=== PATIENT | male | born 1945 ===

== ENCOUNTER 2019-12-01 17:25 | IRF | payer MEDICARE, SELFPAY ==
[2019-12-01 17:25] VITALS: BP 104/71; PULSE 85; RESP 18; TEMP 36.1; O2SAT 100; BMI 32.5
--- NOTE | 2019-12-01 18:11 | PC.NURSE ---
This patient, Rakan Rasheed, was admitted to [facility] Room 219-02. Patient/family oriented to hospital policies and general routines including ID bracelet, bed and alarms, visiting hours, pain management, procedures, bathroom and other care routines, personal items, smoking policy, room service/diet, and visiting hours. Valuables list has been completed. Information on how to activate the Rapid Response Team has been discussed. Patient/Family are encouraged to report perceived risks to care and to ask questions if they do not understand what they are told or what they should do.
[2019-12-01 21:11] VITALS: PULSE 85
[2019-12-01] MEDS: BUMETANIDE 1 MG TABLET 2 MG PO (21:11)
[2019-12-01] MEDS: carvediloL 12.5 MG TABLET PO (21:11)
[2019-12-01 21:12] VITALS: PULSE 85
[2019-12-01] MEDS: SACUBITRIL/VALSARTAN 24-26 MG TABLET 1 TAB PO (21:12)
[2019-12-01] MEDS: MEXILETINE HCL 150 MG CAPSULE PO (21:12)
[2019-12-01] MEDS: MONTELUKAST SODIUM 10 MG TABLET PO (21:12)
[2019-12-01] MEDS: ROSUVASTATIN 10 MG TABLET PO (21:12)
[2019-12-01 21:56] VITALS: BP 102/70; PULSE 90; RESP 18; TEMP 35; O2SAT 98
[2019-12-01 22:41] VITALS: PULSE 88; O2SAT 94
[2019-12-02 05:30] LABS: Basophils Absolute Auto 0.1 K/mm3 (0.0-0.1); Basophils Percent Auto 1.2 % (0.2-1.2); Eosinophils Absolute Auto 0.2 K/mm3 (0-0.3); Eosinophils Percent Auto 3.8 % (0-4.4); Hematocrit 45.6 % (42.0-52.0); Hemoglobin 15.1 g/dL (14.0-18.0); Immature Granulocyte Absolute 0.02 K/mm3 (0.00-0.031); Immature Granulocyte Percent A 0.5 % (0-0.5); Lymphocytes Absolute Auto 0.59 K/mm3 (0.9-3.2); Lymphocytes Percent Auto 13.9 % (18.3-44.2); Mean Corpuscular HGB Conc 33.1 g/dl (32-36); Mean Corpuscular Volume 99.6 fl (80-100); Mean Platelet Volume 9.8 fl (7.4-10.4); Monocytes Absolute Auto 0.5 K/mm3 (0.1-0.6); Neutrophils Absolute Auto 2.9 K/mm3 (1.3-6.7); Neutrophils Percent Auto 68.6 % (45.5-73.1); Platelet Count Result 142 k/mm3 (150-375); Red Blood Count 4.58 M/mm3 (4.6-6.20); Red Cell Distribution Width 15.9 % (11.5-14.5); White Blood Count 4.3 K/mm3 (4.5-10.0)
[2019-12-02 05:35] VITALS: BP 100/67; PULSE 70; RESP 18; TEMP 35.6; O2SAT 98
[2019-12-02 05:41] LABS: Potassium 3.8 mmol/L (3.4-5.0)
[2019-12-02] MEDS: LEVOTHYROXINE SODIUM 75 MCG TABLET PO (05:43)
[2019-12-02 05:50] LABS: Anion Gap 5 mmol/L (8-16); Blood Urea Nitrogen 20 mg/dL (9-20); Calcium 8.1 mg/dL (8.4-10.2); Carbon Dioxide 34 mmol/L (22-30); Chloride 94 mmol/L (98-107); Estimated CRCL calculation 48 ml/min; Estimated Glomerular Filt Rate 50; Glucose 88 mg/dL (75-110); Sodium 133 mmol/L (137-145)
[2019-12-02 08:27] VITALS: PULSE 78
[2019-12-02] MEDS: BUMETANIDE 1 MG TABLET 2 MG PO ×2 (08:27→18:28)
[2019-12-02] MEDS: carvediloL 12.5 MG TABLET PO (08:27)
[2019-12-02] MEDS: ASPIRIN 81 MG ENTERIC TABLET PO (08:27)
[2019-12-02 08:34] VITALS: PULSE 78
[2019-12-02] MEDS: CYANOCOBALAMIN 250 MCG TABLET PO (08:34)
[2019-12-02] MEDS: CITALOPRAM HYDROBROMIDE 20 MG TABLET PO (08:34)
[2019-12-02] MEDS: CHOLECALCIFEROL 1,000 UNITS TABLET 1000 UNITS PO (08:34)
[2019-12-02] MEDS: SACUBITRIL/VALSARTAN 24-26 MG TABLET 1 TAB PO ×2 (08:34→21:29)
[2019-12-02] MEDS: MEXILETINE HCL 150 MG CAPSULE PO (08:34)
[2019-12-02] MEDS: SPIRONOLACTONE 25 MG TABLET PO (08:34)
--- NOTE | 2019-12-02 10:30 | WPDREHABHP ---
H&P: HPI History of Present Illness Date/Time: 12/02/19 13:32 Chief complaint: ventricular tachycardia Narrative: Rakan Rasheed is a 73 year old maleHISTORY OF PRESENT ILLNESS: The patient's primary rehab impairment category is 14 - cardiac The etiologic diagnosis is ventricular tachycardia I saw this patient [id number] on December 02, 2019 at 10:30 a.m. The patient is a 73-year-old right-handed white male with a past medical history of hypertension, congestive heart failure, hyperlipidemia, coronary artery disease, non ST elevation [place], and ischemic cardiomyopathy who presented to [facility] on November 24, 2019 as a transfer from [facility] for possible ventricular tachycardia ablation. The patient had been having increasing episodes of V-tach with appropriated ATP and got shocked by his device about 2 weeks ago. He was admitted to [facility] where he was started on lidocaine drip and then transverse transition to mexiletine he was then discharged but his heart rate was 135 on pulse oximetry so he went to the ER where he was found to be in V-tach. He was shocked twice and he reverted back to his AV paced rhythm. He has also been having worsening bilateral pedal swelling which prompted an increase in diuretic. He underwent a left heart catheterization to evaluate for ischemia and showed a nonobstructive proximal lad lesion, ventriculogram showed an ejection fraction of 10 to 15%. Echocardiogram on November 25, 2019 showed an ejection fraction of 25% with moderate to severe mitral and tricuspid regurgitation and gait 3 diastolic dysfunction. He underwent a successful epicardial ablation on November 25. That was complicated by a large pericardial effusion without tamponade. Femoral sheaths and drain were removed by Cardiology in November 27, 2019. He was monitor in the ICU and recovered well. He was transferred out of the ICU on November 28, 2019. Hospitalization has been significant for ventricular tachycardia, acute on chronic combined systolic and diastolic congestive heart failure, acute on chronic kidney disease, volume overload, and acute post procedural pain. There have been many medication adjustments that will need to be monitored. He underwent repeat echocardiogram in November 30, 2019 with no new interventions necessary. The ejection fraction remained 25%. The patient was discharged to rehab and subcutaneous heparin for DVT prophylaxis. However I do not see heparin on his discharge medication we will have to see how far he is able to walk then will decide whether not to restart the heparin. The patient has not traveled outside the [place] or had contact with someone who is ill that has traveled outside the [place] in the past 21 days. The patient has not traveled to an area of the [place] that is experiencing no transmission of the Coronavirus and has not had close personal contact with anyone that has. Patient does not have a fever. The patient is not experiencing lower respiratory illness symptoms. Therapy was initiated at the acute care facility and the patient transferred to us from [facility] on December 01, 2019 FALLS OR SURGERIES: The patient has had major surgeries in the 100 days prior to admission. They had falls in the past year. They had falls with injury in the past year. PAST MEDICAL HISTORY: atrial fibrillation, hypertension, benign prostatic hypertrophy, chronic kidney disease, coronary artery disease, non ST elevation myocardial infarction, depression, thrombocytopenia, monoclonal B-cell lymphocytosis, hypertension, hyperlipidemia, ventricular tachycardia, ischemic cardiomyopathy, obstructive sleep apnea on home CPAP, obesity PAST SURGICAL HISTORY: cardiac defibrillator placement, ablation, biventricular defibrillator generator, right AV pacing lead, are we defibrillator lead, LV difficult lead implantation, left knee surgery, this was due to meniscal tear SOCIAL HIST
[2019-12-02 12:32] VITALS: BMI 32.5
[2019-12-02 14:00] VITALS: BP 82/62; PULSE 70; RESP 16; TEMP 35.8; O2SAT 100
[2019-12-02] MEDS: ROSUVASTATIN 10 MG TABLET PO (21:29)
[2019-12-02] MEDS: MONTELUKAST SODIUM 10 MG TABLET PO (21:29)
[2019-12-02 21:30] VITALS: PULSE 70
[2019-12-02 22:00] VITALS: BP 90/60; PULSE 70; RESP 16; TEMP 36.5; O2SAT 97
--- NOTE | 2019-12-02 22:00 | PC.NURSE ---
pt refused bp meds. aware
[2019-12-03] VITALS (7 sets, daily range): BP systolic 79–104; BP diastolic 53–70; PULSE 69–72; RESP 18–20; TEMP 35.9–36.6; O2SAT 98–100
[2019-12-03] MEDS: LEVOTHYROXINE SODIUM 75 MCG TABLET PO (05:41)
[2019-12-03] MEDS: ASPIRIN 81 MG ENTERIC TABLET PO (08:36)
[2019-12-03] MEDS: carvediloL 12.5 MG TABLET PO ×2 (08:36→20:40)
[2019-12-03] MEDS: BUMETANIDE 1 MG TABLET 2 MG PO ×2 (08:36→17:35)
[2019-12-03] MEDS: CYANOCOBALAMIN 250 MCG TABLET PO (08:37)
[2019-12-03] MEDS: SACUBITRIL/VALSARTAN 24-26 MG TABLET 1 TAB PO (08:37)
[2019-12-03] MEDS: CITALOPRAM HYDROBROMIDE 20 MG TABLET PO (08:37)
[2019-12-03] MEDS: CHOLECALCIFEROL 1,000 UNITS TABLET 1000 UNITS PO (08:37)
[2019-12-03] MEDS: SPIRONOLACTONE 25 MG TABLET PO (08:37)
[2019-12-03] MEDS: MEXILETINE HCL 150 MG CAPSULE PO ×2 (08:38→20:40)
--- NOTE | 2019-12-03 16:14 | RPD ---
INDIVIDUALIZED PLAN OF CARE FOR Rakan Rasheed Brief Synthesis of Pre-Admission Screen, Post-Admission Evaluation and Therapy Evaluations: The patient presents to rehab with ventricular tachycardia. Comorbidities include status post epicardial ablation, pericardial effusion, drain placement and removal, acute post-procedural pain, acute kidney injury on chronic kidney disease, acute on chronic congestive heart failure, volume overload, edema, hyperlipidemia, hypertension, and BPH. The patient?s needs will be best met in an intensive program vs. at a lower level of care. The patient requires physician services for medical oversight, management of post-procedure complications in setting of present comorbidities, and pain management. The patient requires nursing services for anticoagulation therapy, DVT prophylactics, infection protection, medication management and education, pressure relief, and wound care. Deficits include:ADLs, Balance, Endurance, Family Training/Education, Mobility, Pain Management, ROM, Safety, Strength, and Transfers Teaseler/Case Management for: Discharge Planning and Patient/Family Counseling Physical Therapy: 5 days per week for 75 minutes. Treatments may include: Therapeutic Exercise, Gait Training, Neuromuscular Re-education, Transfer Training, Community Reintegration, Bed Mobility, Patient/Family Education, Wheelchair Mobility Group Therapy/Concurrent Therapy Rationales: -Improve attention span during functional activities in a distracted environment. -Enhance problem solving and/or adequate judgment skills during functional activities in a distracted environment. -Promote increased safety awareness in a distracted environment to reduce fall risk with functional tasks, transfers, and ambulation to allow a more safe, self-sufficient return to the home environment. -Improve dynamic balance skills to promote safety and independence with functional activities in a distracted environment for maximum gain. Occupational Therapy: 5 days per week for 75 minutes. Treatments may include: Therapeutic Exercise, Therapeutic Activity, Cognitive Training, Self-Care Transfer Training, Community Reintegration, Home Management, Patient/Family Education, Wheelchair Mobility Training, Energy Conservation Training Group Therapy/Concurrent Therapy Rationales: -Allow therapist to observe and teach generalization and carry-over of skills learned in individual therapy. -Enhance problem solving and sequencing skills during therapeutic activities in a distracted environment. -Promote increased safety awareness in a realistic setting to reduce fall risk with functional tasks due to visual and verbal distractions. -Increase functional level with ADLs, ADL transfers and use of adaptive equipment through therapeutic activities with others while promoting safety to allow a more safe, self-sufficient return home. Speech Therapy: 5 days per week for 30 minutes. Treatments may include: Dysphasia Therapy, Speech/Language/Communication Therapy, Cognitive Training, Patient/Family Education Group Therapy/Concurrent Therapy - Rationale: -Allow therapist to observe and teach generalization and carry-over of skills learned in individual therapy. -Improve comprehension skills with complex or abstract ideas through discussion in a realistic setting. -Enhance problem solving skills with complex issues during activities in a distracted environment. -Promote increased memory skills and concentration in a distracted environment for a safe transition home. -Improve attention and focus with language/communication skills in a realistic and supportive therapeutic setting. -Allow for practice of expression of basic needs and ideas through functional activities with others. Medical Prognosis: Good Anticipated Length of Stay: 10 days Rehab Goals: Eating Goal: 06-Independent Oral Hygiene Goal: 06-Independent Toileting Hygiene Goal: 06-Independent Shower/Bathe Self Goal: 06-In
--- NOTE | 2019-12-03 19:15 | WPDCN ---
Assessment and Plan Assessment and plan (1) Hypotension: Code(s): I95.9 - Hypotension, unspecified Status: Acute Assessment and Plan: Patient has had trouble with hypotension at [place] and here with diuresis. He is asymptomatic however , and his renal function is normal. Okay for blood pressure to be in the mid 90s. He is on several cardiac medications for CHF; will need to reduce cardiac meds for now, and later, once if it sufficiently diuresed, titrate back upwards (2) Chronic combined systolic and diastolic CHF (congestive heart failure): Code(s): I50.42 - Chronic combined systolic (congestive) and diastolic (congestive) heart failure Status: Acute Assessment and Plan: Patient has been diuresed and has lost a lot of weight recently but still is volume overloaded with ascites, edema of the abdominal wall, and a left pleural effusion. Will try to continue diuretics but will need to reduce his other cardiac medications in order to diurese. Reduce Entresto 24/26 mg to half a tablet b.i.d.. Hold carvedilol if SBP < 90 mmHg. (3) Nonischemic cardiomyopathy: Code(s): I42.8 - Other cardiomyopathies Status: Acute Assessment and Plan: Nonischemic cardiomyopathy, EF 20-25%. (4) History of radiofrequency ablation procedure for cardiac arrhythmia: Code(s): Z98.890 - Other specified postprocedural states Status: Acute Assessment and Plan: Recent successful V-tach ablation at [facility] complicated by hemorrhagic pericardial effusion which has been drained. No evidence of significant recurrence. Additional Plan Thank you for this consult. Will follow and assist in any way we can. HPI Data of Consult Date/Time: 12/03/19 19:15 Requesting Physician: Markel Walls MD Primary Care Provider: Mikael Freitas MD Consult Narrative Narrative: Date of service: 12/03/2019 Rakan Rasheed is a 73 year old male With a very complex cardiac history whom I was asked to see at the request of Dr. Walls for my advice and opinion regarding his low blood pressure in consultation. The patient's neurology epilepsy physician is Dr. Short and his primary care doctors Dr. Freitas. The patient has a nonischemic cardiomyopathy, EF 25% ( echo 11/2019), status post BiV-ICD 2017. He has been having problems with recurrent VT and recurrent defibrillations. he was admitted to [facility] for sustained ventricular tachycardia in November. Left heart catheterization Showed nonobstructive disease. He was sent to [facility] aneendo/epi V-tach ablation on 11/26/2019 complicated by large pericardial effusion without tamponade. He had a pericardial drain placed. He is very volume overloaded. He transiently required Levophed. He had problems with hypotension. He was not able the tolerate all of his previous cardiac medications. his hydralazine and nitrates were eventually discontinued. His Entresto has been reduced. He was diuresed. ( The patient tells me he lost 60 lb in 3 weeks ...?) The patient was transferred to rehab on 12/01/2019. He says he really feels good and denies any MELLO with physical therapy. No PND , orthopnea, or lightheadedness. His had very little lower extremity edema but most of his fluid retention has been in his abdomen. His systolic blood pressure was as low as 79/53 mmHg but usually the systolic pressure is 90-105 mmHg. Cardiac testin11/16/2019 cardiac catheterization: 40% stenosis of the proximal Left anterior descending, EF 10-15%, 2+ mitral regurgitation 11/25/2019 echo: Marked LV enlargement, RV enlargement, EF 25%, grade 3 diastolic dysfunction,moderate to severe MR, severe TR, RVSP 45 mmHg, large pleural effusion 11/30/2019 Limited Echo: large left pleural effusion, small residual pericardial e
[2019-12-03] MEDS: ROSUVASTATIN 10 MG TABLET PO (20:39)
[2019-12-03] MEDS: MONTELUKAST SODIUM 10 MG TABLET PO (20:39)
[2019-12-03] MEDS: SACUBITRIL/VALSARTAN 12-13 MG TABLET 1 TAB PO (21:54)
[2019-12-04] VITALS (8 sets, daily range): BP systolic 82–86; BP diastolic 54–59; PULSE 66–81; RESP 18–20; TEMP 36.1–36.2; O2SAT 94–100
[2019-12-04] MEDS: LEVOTHYROXINE SODIUM 75 MCG TABLET PO (05:36)
[2019-12-04] MEDS: BUMETANIDE 1 MG TABLET 2 MG PO ×2 (08:48→18:19)
[2019-12-04] MEDS: ASPIRIN 81 MG ENTERIC TABLET PO (08:48)
[2019-12-04] MEDS: CHOLECALCIFEROL 1,000 UNITS TABLET 1000 UNITS PO (08:50)
[2019-12-04] MEDS: MEXILETINE HCL 150 MG CAPSULE PO ×2 (08:50→20:42)
[2019-12-04] MEDS: CYANOCOBALAMIN 250 MCG TABLET PO (08:50)
[2019-12-04] MEDS: CITALOPRAM HYDROBROMIDE 20 MG TABLET PO (08:50)
[2019-12-04] MEDS: SACUBITRIL/VALSARTAN 12-13 MG TABLET 1 TAB PO ×2 (08:51→20:42)
[2019-12-04] MEDS: SPIRONOLACTONE 25 MG TABLET PO (08:51)
--- NOTE | 2019-12-04 12:01 | WPDNEURORHBP ---
Subjective Date/time seen: 12/04/19 12:01 Interval history: this 73-year-old gentleman is here with a complicated cardiac history the primary rehab category is the ventricular tachycardia followed by procedures as have been documented by myself and also the network firewall engineer consulted her notes were reviewed the patient is really asymptomatic even with low blood pressure running below 100 systolic engage in therapy denies any headache nausea vomiting chest pain shortness of breath fever chills sore throat his blood pressure medication have been reduced and he continues with the diuresis Review of Systems Review of Systems: All systems reviewed & are unremarkable except as noted in HPI and below Functional Status Ambulation Ability Ability to Ambulate 10 Feet: Contact Guard Ability to Ambulate 50 Feet With 2 Turns: Contact Guard Ability to Ambulate 150 Feet: Contact Guard Ambulation Assistive Devices: Walker, Wheeled Transfers Ability Ability to Transfer In/Out of Chair: Contact Guard Exam Const: General: comfortable and no acute distress HENMT: General nose exam: Normal nares present Mouth: Yes moist mucous membranes Eyes: General: appearance normal, both eyes and all related structures Neck: Neck: supple and no JVD Resp: Effort & Inspection: normal respiratory effort Auscultation: clear to auscultation bilaterally Cardio: Rate: regular rate Rhythm: regular rhythm Other: paced rhythm GI: GI Palp: Yes Soft to palpation Auscultation: normal bowel sounds Skin: General skin exam: normal color and no rashes or lesions noted Neuro: Other: patient is awake and alert well oriented has generalized decreased strength and decreased endurance but is getting better and he is moving forward Extrem: General: normal to inspection Other: edema of the lower extremities slowly getting better Psych: Mental Status: mental status grossly normal Objective Data Vital Signs Vital Signs: Vital Signs - 24 hr 12/03/19 14:00 12/03/19 20:40 12/03/19 21:57 Temperature 36.2 C L 35.9 C L Pulse Rate 70 70 70 Respiratory Rate 18 20 Blood Pressure 79/53 L 85/59 L Pulse Oximetry 100 99 12/03/19 22:02 12/04/19 05:40 12/04/19 08:49 Temperature 36.1 C L Pulse Rate 72 71 66 Respiratory Rate 20 Blood Pressure 84/59 L Pulse Oximetry 98 99 12/04/19 08:50 Temperature Pulse Rate 66 Respiratory Rate Blood Pressure Pulse Oximetry Intake/Output Intake/Output: Intake & Output 12/01/19 12/02/19 12/03/19 12/04/19 23:59 23:59 23:59 23:59 Intake Total 960 480 Balance 960 480 Meds/Results Medications: Active Medications Generic Name Dose Route Start Last Admin Trade Name Troy PRN Reason Stop Dose Admin Aspirin 81 mg 12/02/19 09:00 12/04/19 08:48 Aspirin Ec PO 81 mg DAILY GENO Administration Bumetanide 2 mg 12/01/19 17:00 12/04/19 08:48 Bumex Po PO 2 mg BID GENO Administration Carvedilol 12.5 mg 12/01/19 21:00 12/04/19 08:49 Coreg PO Not Given Q12HR [facility] Citalopram Hydrobromide 20 mg 12/02/19 09:00 12/04/19 08:50 Celexa PO 20 mg DAILY GENO Administration Cyanocobalamin 250 mcg 12/02/19 09:00 12/04/19 08:50 Vitamin B-12 Tab PO 250 mcg QAM GENO Administration Levothyroxine Sodium 75 mcg 12/02/19 06:30 12/04/19 05:36 Synthroid PO 75 mcg DAILY@0630 GENO Administration Mexiletine HCl 150 mg 12/01/19 21:00 12/04/19 08:50 Mexitil PO 150 mg Q12HR GENO Administration Montelukast Sodium 10 mg 12/01/19 21:00 12/03/19 20:39 Singulair PO 10 mg HS GENO Administration Rosuvastatin Calcium 10 mg 12/01/19 21:00 12/03/19 20:39 Crestor PO 10 mg HS GENO Administration Sacubitril/Valsartan 1 tab 12/03/19 21:00 12/04/19 08:51 Entresto 12 Mg-13 Mg Tablet PO 1 tab Q12HR GENO Administration Spironolactone 25 mg 12/02/19 09:00 12/04/19 08:51 Aldactone PO 25 mg DAILY GENO Administration Vitamin D 1,000
[2019-12-04] MEDS: MONTELUKAST SODIUM 10 MG TABLET PO (20:42)
[2019-12-04] MEDS: ROSUVASTATIN 10 MG TABLET PO (20:42)
[2019-12-05] MEDS: LEVOTHYROXINE SODIUM 75 MCG TABLET PO (05:39)
[2019-12-05 06:00] VITALS: BP 91/62; PULSE 80; RESP 12; TEMP 36.6; O2SAT 99
[2019-12-05] MEDS: ASPIRIN 81 MG ENTERIC TABLET PO (08:45)
[2019-12-05 08:46] VITALS: PULSE 80
[2019-12-05] MEDS: carvediloL 12.5 MG TABLET PO (08:46)
[2019-12-05] MEDS: BUMETANIDE 1 MG TABLET 2 MG PO ×2 (08:46→17:27)
[2019-12-05 08:47] VITALS: PULSE 80
[2019-12-05] MEDS: MEXILETINE HCL 150 MG CAPSULE PO ×2 (08:47→21:03)
[2019-12-05] MEDS: CITALOPRAM HYDROBROMIDE 20 MG TABLET PO (08:47)
[2019-12-05] MEDS: CHOLECALCIFEROL 1,000 UNITS TABLET 1000 UNITS PO (08:47)
[2019-12-05] MEDS: SACUBITRIL/VALSARTAN 12-13 MG TABLET 1 TAB PO ×2 (08:47→21:04)
[2019-12-05] MEDS: CYANOCOBALAMIN 250 MCG TABLET PO (08:47)
[2019-12-05] MEDS: SPIRONOLACTONE 25 MG TABLET PO (08:47)
[2019-12-05 14:00] VITALS: BP 84/60; PULSE 70; RESP 18; TEMP 35.9; O2SAT 96
[2019-12-05] MEDS: ROSUVASTATIN 10 MG TABLET PO (21:03)
[2019-12-05] MEDS: MONTELUKAST SODIUM 10 MG TABLET PO (21:04)
[2019-12-05 21:06] VITALS: PULSE 70
[2019-12-05 21:48] VITALS: BP 85/60; PULSE 70; RESP 18; TEMP 36.3; O2SAT 98
[2019-12-06] VITALS (8 sets, daily range): BP systolic 85–100; BP diastolic 53–76; PULSE 70–82; RESP 18–22; TEMP 35.9–36.3; O2SAT 96–100
[2019-12-06] MEDS: LEVOTHYROXINE SODIUM 75 MCG TABLET PO (06:02)
[2019-12-06] MEDS: CITALOPRAM HYDROBROMIDE 20 MG TABLET PO (09:31)
[2019-12-06] MEDS: CHOLECALCIFEROL 1,000 UNITS TABLET 1000 UNITS PO (09:31)
[2019-12-06] MEDS: ASPIRIN 81 MG ENTERIC TABLET PO (09:31)
[2019-12-06] MEDS: carvediloL 12.5 MG TABLET PO ×2 (09:31→21:43)
[2019-12-06] MEDS: BUMETANIDE 1 MG TABLET 2 MG PO (09:31)
[2019-12-06] MEDS: CYANOCOBALAMIN 250 MCG TABLET PO (09:31)
[2019-12-06] MEDS: SACUBITRIL/VALSARTAN 12-13 MG TABLET 1 TAB PO ×2 (09:32→21:46)
[2019-12-06] MEDS: SPIRONOLACTONE 25 MG TABLET PO (09:32)
[2019-12-06] MEDS: MEXILETINE HCL 150 MG CAPSULE PO ×2 (09:32→21:44)
--- NOTE | 2019-12-06 12:20 | WPDNEURORHBP ---
Subjective Date/time seen: 12/05/[birth year]72 years old has been admitted to the rehab floor with ventricular tachycardia 12:20 Review of Systems Review of Systems: Narrative: all systems reviewed and are unremarkable except as noted in admission history and physical examination Functional Status Ambulation Ability Ability to Ambulate 10 Feet: Independent Ability to Ambulate 50 Feet With 2 Turns: Standby Assistance Ability to Ambulate 150 Feet: Standby Assistance Ambulation Assistive Devices: None Transfers Ability Ability to Transfer In/Out of Chair: Independent Exam Narrative: Exam Narrative: examination reveals him to be awake alert cooperative in no obvious acute distress ear nose throat examination normal with no drainage from the nose eyes are normal with normal cornea normal pupil and normal extraocular movements neck is supple with no cervical bruit no thyromegaly no lymphadenopathy heart regular with no murmur lungs clear to auscultation with no rhonchi or crepitations abdomen is soft with no organomegaly normal bowel sounds with no tenderness skin normal neurological he is awake alert oriented x3 manifest generalized weakness with decreased endurance definitely getting better with no focal neurological signs reflexes are sluggish plantars are downgoing extremities are normal with no signs of DVT mentally he is awake alert with no evidence of delusion depression Objective Data Vital Signs Vital Signs: Vital Signs - 24 hr 12/05/19 14:00 12/05/19 21:06 12/05/19 21:48 Temperature 35.9 C L 36.3 C L Pulse Rate 70 70 70 Respiratory Rate 18 18 Blood Pressure 84/60 L 85/60 L Pulse Oximetry 96 98 12/06/19 06:03 12/06/19 09:31 12/06/19 09:32 Temperature 36.2 C L Pulse Rate 70 70 70 Respiratory Rate 18 Blood Pressure 100/76 Pulse Oximetry 100 Intake/Output Intake/Output: Intake & Output 12/03/19 12/04/19 12/05/19 12/06/19 23:59 23:59 23:59 23:59 Intake Total 480 480 720 240 Balance 480 480 720 240 Meds/Results Medications: Active Medications Generic Name Dose Route Start Last Admin Trade Name Freq PRN Reason Stop Dose Admin Aspirin 81 mg 12/02/19 09:00 12/06/19 09:31 Aspirin Ec PO 81 mg DAILY GENO Administration Bumetanide 2 mg 12/06/19 09:00 12/06/19 09:31 Bumex Po PO 2 mg DAILY GENO Administration Carvedilol 12.5 mg 12/01/19 21:00 12/06/19 09:31 Coreg PO 12.5 mg Q12HR GENO Administration Citalopram Hydrobromide 20 mg 12/02/19 09:00 12/06/19 09:31 Celexa PO 20 mg DAILY GENO Administration Cyanocobalamin 250 mcg 12/02/19 09:00 12/06/19 09:31 Vitamin B-12 Tab PO 250 mcg QAM GENO Administration Levothyroxine Sodium 75 mcg 12/02/19 06:30 12/06/19 06:02 Synthroid PO 75 mcg DAILY@0630 GENO Administration Mexiletine HCl 150 mg 12/01/19 21:00 12/06/19 09:32 Mexitil PO 150 mg Q12HR GENO Administration Montelukast Sodium 10 mg 12/01/19 21:00 12/05/19 21:04 Singulair PO 10 mg HS GENO Administration Rosuvastatin Calcium 10 mg 12/01/19 21:00 12/05/19 21:03 Crestor PO 10 mg HS GENO Administration Sacubitril/Valsartan 1 tab 12/03/19 21:00 12/06/19 09:32 Entresto 12 Mg-13 Mg Tablet PO 1 tab Q12HR GENO Administration Spironolactone 25 mg 12/02/19 09:00 12/06/19 09:32 Aldactone PO 25 mg DAILY GENO Administration Vitamin D 1,000 units 12/02/19 09:00 12/06/19 09:31 Vitamin D PO 1,000 units DAILY GENO Administration Progress Note: A&P Assessment and Plan (1) Hypotension: Code(s): I95.9 - Hypotension, unspecified Status: Acute (2) Atrial fibrillation: Code(s): I48.91 - Unspecified atrial fibrillation Status: Acute (3) Biventricular ICD (implantable cardioverter-defibrillator) in place: Code(s): Z95.810 - Presence of automatic (implantable) cardiac defibrillator Status: Acute (4) History of radiofrequency ablation procedure for ca
[2019-12-06] MEDS: MONTELUKAST SODIUM 10 MG TABLET PO (21:45)
[2019-12-06] MEDS: ROSUVASTATIN 10 MG TABLET PO (21:45)
[2019-12-07] VITALS (11 sets, daily range): BP systolic 73–127; BP diastolic 50–73; PULSE 68–84; RESP 16–20; TEMP 35.7–36.6; O2SAT 93–99
[2019-12-07] MEDS: LEVOTHYROXINE SODIUM 75 MCG TABLET PO (05:25)
[2019-12-07] MEDS: ASPIRIN 81 MG ENTERIC TABLET PO (09:22)
[2019-12-07] MEDS: CHOLECALCIFEROL 1,000 UNITS TABLET 1000 UNITS PO (09:22)
[2019-12-07] MEDS: carvediloL 12.5 MG TABLET PO ×2 (09:22→21:22)
[2019-12-07] MEDS: CYANOCOBALAMIN 250 MCG TABLET PO (09:22)
[2019-12-07] MEDS: SACUBITRIL/VALSARTAN 12-13 MG TABLET 1 TAB PO ×2 (09:22→21:21)
[2019-12-07] MEDS: CITALOPRAM HYDROBROMIDE 20 MG TABLET PO (09:22)
[2019-12-07] MEDS: BUMETANIDE 1 MG TABLET 2 MG PO (09:23)
[2019-12-07] MEDS: MEXILETINE HCL 150 MG CAPSULE PO ×2 (09:23→21:21)
[2019-12-07] MEDS: SPIRONOLACTONE 25 MG TABLET PO (09:23)
--- NOTE | 2019-12-07 12:32 | PM.PNCARD ---
Progress Note: A&P Additional Plan 73-year-old man with: Nonischemic cardiomyopathy here in rehab after complicated VT ablation that was done at [facility]. Procedure apparently was complicated by perforation and a hemorrhagic effusion which had to be drained urgently. He seems to be clinically stable. Blood pressure in the office chart is measured low at 77 systolic. My blood pressure taken myself during the exam is 90/58. This type of blood pressure is expected as per Dr. Smith's noted. He appears to be clinically stable no changes in cardiac regimen today and will follow peripherally until discharge. Manuel Pugh MD [facility] Subjective Date/time seen: date of service:12/07/19 12:32 Interval history: follow-up visit in this 73-year-old man here recovering from a VT ablation and complicated by hemorrhagic pericardial effusion. Patient feels reasonably well today denies any complaints. Hoping to be able to go home later this week. Exam Const: General: comfortable and no acute distress Other: Patient seated in bed enjoying his lunch HENMT: Mouth: Yes moist mucous membranes Eyes: Sclera: sclerae normal Pupils: Equal, round and reactive pupils present Neck: Neck: supple and no JVD Resp: Effort & Inspection: normal respiratory effort Auscultation: clear to auscultation bilaterally Cardio: Rate: regular rate Rhythm: regular rhythm Other: patient has a high-pitched pericardial rub GI: Auscultation: normal bowel sounds Skin: General skin exam: normal color Neuro: Cognition (Neuro): normal cognition Extrem: General: normal to inspection Objective Data Vital Signs Vital Signs: Vital Signs - 24 hr 12/06/19 14:00 12/06/19 21:43 12/06/19 21:44 Temperature 35.9 C L Pulse Rate 71 70 70 Respiratory Rate 22 H Blood Pressure 85/53 L Pulse Oximetry 97 12/06/19 21:50 12/06/19 22:00 12/07/19 02:03 Temperature 36.3 C L Pulse Rate 82 71 70 Respiratory Rate 18 Blood Pressure 96/55 L Pulse Oximetry 96 98 94 12/07/19 06:00 12/07/19 09:22 12/07/19 09:23 Temperature 36.4 C Pulse Rate 70 68 68 Respiratory Rate 16 Blood Pressure 99/62 L Pulse Oximetry 99 12/07/19 11:00 Temperature Pulse Rate Respiratory Rate Blood Pressure 73/50 L Pulse Oximetry Intake/Output Intake/Output: Intake & Output 12/04/19 12/05/19 12/06/19 12/07/19 23:59 23:59 23:59 23:59 Intake Total 480 720 720 240 Balance 480 720 720 240 Meds/Results Medications: Active Medications Generic Name Dose Route Start Last Admin Trade Name Troy PRN Reason Stop Dose Admin Aspirin 81 mg 12/02/19 09:00 12/07/19 09:22 Aspirin Ec PO 81 mg DAILY GENO Administration Bumetanide 2 mg 12/06/19 09:00 12/07/19 09:23 Bumex Po PO 2 mg DAILY GENO Administration Carvedilol 12.5 mg 12/01/19 21:00 12/07/19 09:22 Coreg PO 12.5 mg Q12HR GENO Administration Citalopram Hydrobromide 20 mg 12/02/19 09:00 12/07/19 09:22 Celexa PO 20 mg DAILY GENO Administration Cyanocobalamin 250 mcg 12/02/19 09:00 12/07/19 09:22 Vitamin B-12 Tab PO 250 mcg QAM GENO Administration Levothyroxine Sodium 75 mcg 12/02/19 06:30 12/07/19 05:25 Synthroid PO 75 mcg DAILY@0630 GENO Administration Mexiletine HCl 150 mg 12/01/19 21:00 12/07/19 09:23 Mexitil PO 150 mg Q12HR GENO Administration Montelukast Sodium 10 mg 12/01/19 21:00 12/06/19 21:45 Singulair PO 10 mg HS GENO Administration Rosuvastatin Calcium 10 mg 12/01/19 21:00 12/06/19 21:45 Crestor PO 10 mg HS GENO Administration Sacubitril/Valsartan 1 tab 12/03/19 21:00 12/07/19 09:22 Entresto 12 Mg-13 Mg Tablet PO 1 tab Q12HR GENO Administration Spironolactone 25 mg 12/02/19 09:00 12/07/19 09:23 Aldactone PO 25 mg DAILY GENO Administration Vitamin D 1,000 units 12/02/19 09:00 12/07/19 09:22 Vitamin D PO 1,000 units DAILY GENO Administrat
--- NOTE | 2019-12-07 13:20 | PCPTNOTE ---
Rakan Rasheed was evaluated for a wheeled walker on 12/07/2019 by this physical therapist. The wheeled walker will resolve patient's mobility limitations and will be used for ADL's within the home. The patient can safely use the wheeled walker. ?The wheeled walker will resolve the patient?s mobility deficits, including transfers/gait. Frannie Justice Pt
[2019-12-07] MEDS: ROSUVASTATIN 10 MG TABLET PO (21:22)
[2019-12-07] MEDS: MONTELUKAST SODIUM 10 MG TABLET PO (21:22)
[2019-12-08] MEDS: LEVOTHYROXINE SODIUM 75 MCG TABLET PO (05:52)
[2019-12-08 06:00] VITALS: BP 97/62; PULSE 71; RESP 18; TEMP 36.1; O2SAT 99
[2019-12-08 07:39] VITALS: PULSE 74
[2019-12-08] MEDS: ASPIRIN 81 MG ENTERIC TABLET PO (07:39)
[2019-12-08] MEDS: carvediloL 12.5 MG TABLET PO (07:39)
[2019-12-08] MEDS: SACUBITRIL/VALSARTAN 12-13 MG TABLET 1 TAB PO (07:40)
[2019-12-08 07:41] VITALS: PULSE 74
[2019-12-08] MEDS: CYANOCOBALAMIN 250 MCG TABLET PO (07:41)
[2019-12-08] MEDS: CHOLECALCIFEROL 1,000 UNITS TABLET 1000 UNITS PO (07:41)
[2019-12-08] MEDS: BUMETANIDE 1 MG TABLET 2 MG PO (07:41)
[2019-12-08] MEDS: MEXILETINE HCL 150 MG CAPSULE PO (07:41)
[2019-12-08] MEDS: CITALOPRAM HYDROBROMIDE 20 MG TABLET PO (07:41)
[2019-12-08] MEDS: SPIRONOLACTONE 25 MG TABLET PO (07:41)
--- NOTE | 2019-12-08 12:59 | WPDNEURORHBP ---
Subjective Date/time seen: 12/08/19 12:59 Interval history: This 73-year-old gentleman is here with the primary rehab diagnosis of ventricular tachycardia post ablation and placement of the ICD implant he has been followed periodically by our Cardiology colleague because of his relatively low blood pressure which is according to our flamer sealer is not an unusual scenario knowing his history of cardiomyopathy patient is ready to be discharged today and should have follow-up appointment we had a team conference and I will summarize it in my additional plan The patient denies any unusual headache nausea vomiting chest pain shortness of breath fever chills sore throat Review of Systems Review of Systems: All systems reviewed & are unremarkable except as noted in HPI and below Functional Status Ambulation Ability Ability to Ambulate 10 Feet: Independent Ability to Ambulate 50 Feet With 2 Turns: Independent Ability to Ambulate 150 Feet: Independent Ambulation Assistive Devices: None Transfers Ability Ability to Transfer In/Out of Chair: Independent Exam Const: General: comfortable and no acute distress HENMT: General nose exam: Normal nares present Mouth: Yes moist mucous membranes Eyes: General: appearance normal, both eyes and all related structures Neck: Neck: supple and no JVD Resp: Effort & Inspection: normal respiratory effort Auscultation: clear to auscultation bilaterally Cardio: Rate: regular rate Rhythm: regular rhythm Other: paced rhythm GI: GI Palp: Yes Soft to palpation Auscultation: normal bowel sounds Skin: General skin exam: normal color and no rashes or lesions noted Neuro: Other: patient is awake alert and not any distress communicative and smiled of at times low blood pressure he is totally asymptomatic that and has done well in over rehab Extrem: General: normal to inspection Psych: Mental Status: mental status grossly normal Objective Data Vital Signs Vital Signs: Vital Signs - 24 hr 12/07/19 14:00 12/07/19 21:21 12/07/19 21:22 Temperature 35.7 C L Pulse Rate 70 70 70 Respiratory Rate 20 Blood Pressure 94/58 L Pulse Oximetry 99 12/07/19 22:00 12/07/19 22:15 12/08/19 06:00 Temperature 36.6 C 36.1 C L Pulse Rate 84 70 71 Respiratory Rate 20 18 Blood Pressure 127/73 97/62 L Pulse Oximetry 99 93 99 12/08/19 07:39 12/08/19 07:41 Temperature Pulse Rate 74 74 Respiratory Rate Blood Pressure Pulse Oximetry Intake/Output Intake/Output: Intake & Output 12/05/19 12/06/19 12/07/19 12/08/19 23:59 23:59 23:59 23:59 Intake Total 720 720 720 240 Balance 720 720 720 240 Meds/Results Medications: Active Medications Generic Name Dose Route Start Last Admin Trade Name Troy PRN Reason Stop Dose Admin Aspirin 81 mg 12/02/19 09:00 12/08/19 07:39 Aspirin Ec PO 81 mg DAILY GENO Administration Bumetanide 2 mg 12/06/19 09:00 12/08/19 07:41 Bumex Po PO 2 mg DAILY GENO Administration Carvedilol 12.5 mg 12/01/19 21:00 12/08/19 07:39 Coreg PO 12.5 mg Q12HR GENO Administration Citalopram Hydrobromide 20 mg 12/02/19 09:00 12/08/19 07:41 Celexa PO 20 mg DAILY GENO Administration Cyanocobalamin 250 mcg 12/02/19 09:00 12/08/19 07:41 Vitamin B-12 Tab PO 250 mcg QAM GENO Administration Levothyroxine Sodium 75 mcg 12/02/19 06:30 12/08/19 05:52 Synthroid PO 75 mcg DAILY@0630 GENO Administration Mexiletine HCl 150 mg 12/01/19 21:00 12/08/19 07:41 Mexitil PO 150 mg Q12HR GENO Administration Montelukast Sodium 10 mg 12/01/19 21:00 12/07/19 21:22 Singulair PO 10 mg HS GENO Administration Rosuvastatin Calcium 10 mg 12/01/19 21:00 12/07/19 21:22 Crestor PO 10 mg HS GENO Administration Sacubitril/Valsartan 1 tab 12/03/19 21:00 12/08/19 07:40 Entresto 12 Mg-13 Mg Tablet PO 1 tab Q12HR GENO Administration Spironolactone 25 mg 12/02/19 09:00 12/08/19 07:41 Ald
--- NOTE | 2019-12-08 14:35 | PM.PNCARD ---
Progress Note: A&P Assessment and Plan (1) Hypotension: Code(s): I95.9 - Hypotension, unspecified Status: Acute Assessment and Plan: Patient has had trouble with hypotension at [facility] and here with diuresis. He is asymptomatic however , and his renal function is normal. Okay for blood pressure to be in the mid 90s. He is on several cardiac medications for CHF; will need to reduce cardiac meds for now, and later, once if it sufficiently diuresed, titrate back upwards. Follow-up a [facility] (2) Chronic combined systolic and diastolic CHF (congestive heart failure): Code(s): I50.42 - Chronic combined systolic (congestive) and diastolic (congestive) heart failure Status: Acute Assessment and Plan: Patient has been diuresed and has lost a lot of weight recently but still is volume overloaded with ascites, edema of the abdominal wall, and a left pleural effusion. continue Entresto 24/26 mg to half a tablet b.i.d.. Hold carvedilol if SBP < 90 mmHg. (3) Nonischemic cardiomyopathy: Code(s): I42.8 - Other cardiomyopathies Status: Acute Assessment and Plan: Nonischemic cardiomyopathy, EF 20-25%. (4) History of radiofrequency ablation procedure for cardiac arrhythmia: Code(s): Z98.890 - Other specified postprocedural states Status: Acute Assessment and Plan: Recent successful V-tach ablation at [facility] complicated by hemorrhagic pericardial effusion which has been drained. No evidence of significant recurrence. Subjective Date/time seen: 12/08/19 14:35 Interval history: 73-year-old man here recovering from a VT ablation and complicated by hemorrhagic pericardial effusion. Date of service 12/08/2019: Anxious to go home today. Denies any chest pain or shortness of breath Review of Systems Constitutional: Constitutional: Denies fatigue and Denies weakness Eyes: Eyes: Reports no additional eye complaints ENT: Denies vertigo and Denies epistaxis Cardiovascular: Cardiovascular: Denies chest pain, Denies pedal edema, Denies leg edema, Denies lightheadedness, Denies dyspnea and Denies dyspnea on exertion Respiratory: Respiratory: Denies chest congestion, Denies dyspnea and Denies dyspnea on exertion Gastrointestinal: Gastrointestinal: Denies abdominal pain, Reports bloating, Denies hematochezia and Denies nausea Genitourinary: Genitourinary: Denies dysuria Musculoskeletal: Musculoskeletal: Reports no additional musculoskeletal complaints Integumentary/Breasts: Skin/Breast: Denies wounds Neurologic: Denies vertigo and Denies weakness Psychiatric: Psychiatric: Denies anxiety Endocrine: Endocrine: Denies fatigue Exam Narrative: Exam Narrative: Friendly. Const: General: comfortable and no acute distress HENMT: General nose exam: no epistaxis Mouth: Yes moist mucous membranes Eyes: Sclera: sclerae normal Neck: Neck: supple and no JVD Thyroid: abnormal thyroid Carotids: no bruits Lymphatic: lymphadenopathy not noted Resp: Effort & Inspection: normal respiratory effort Auscultation: clear to auscultation bilaterally Cardio: Rate: regular rate Rhythm: regular rhythm Heart sounds: Murmur heart sound present ( 3/6 slightly murmur at the lower sternal borders) Other: patient has a high-pitched pericardial rub GI: Inspection: distended Auscultation: normal bowel sounds Other: no hepatosplenomegaly but he does appear to have ascites as well as edema of the flanks an abdominal padilla. Skin: General skin exam: normal color and no rashes or lesions noted Neuro: Cranial nerves: Yes Equal, round and reactive pupils present Cognition (Neuro): normal cognition Speech: normal speech Motor exam (neuro): Normal motor muscle tone present throughout Extrem: General: normal to inspection, no edema an
--- NOTE | 2019-12-12 14:54 | PM.DS ---
DS: Admitting Diagnosis Admitting Diagnosis Admitting Diagnosis: ventricular tachycardia DS: Discharge Diagnosis Discharge Diagnosis (1) Hypotension: Code(s): I95.9 - Hypotension, unspecified Status: Acute (2) Atrial fibrillation: Code(s): I48.91 - Unspecified atrial fibrillation Status: Acute (3) Biventricular ICD (implantable cardioverter-defibrillator) in place: Code(s): Z95.810 - Presence of automatic (implantable) cardiac defibrillator Status: Acute (4) History of radiofrequency ablation procedure for cardiac arrhythmia: Code(s): Z98.890 - Other specified postprocedural states Status: Acute (5) Chronic combined systolic and diastolic CHF (congestive heart failure): Code(s): I50.42 - Chronic combined systolic (congestive) and diastolic (congestive) heart failure Status: Acute (6) Nonischemic cardiomyopathy: Code(s): I42.8 - Other cardiomyopathies Status: Acute (7) Hypothyroidism, unspecified: Code(s): E03.9 - Hypothyroidism, unspecified Status: Acute (8) Mitral valve regurgitation: Code(s): I34.0 - Nonrheumatic mitral (valve) insufficiency Status: Acute (9) Vitamin B12 deficiency anemia, unspecified: Code(s): D51.9 - Vitamin B12 deficiency anemia, unspecified Status: Acute (10) Chronic kidney disease (CKD) stage G3b/A3, moderately decreased glomerular filtration rate (GFR) between 30-44 mL/min/1.73 square meter and albuminuria creatinine ratio greater than 300 mg/g: Code(s): N18.3 - Chronic kidney disease, stage 3 (moderate) Status: Acute (11) Congestive heart failure: Code(s): I50.9 - Heart failure, unspecified Status: Acute (12) Essential (primary) hypertension: Code(s): I10 - Essential (primary) hypertension Status: Acute (13) Impaired fasting glucose: Code(s): R73.01 - Impaired fasting glucose Status: Acute (14) Mixed hyperlipidemia: Code(s): E78.2 - Mixed hyperlipidemia Status: Acute (15) Ventricular tachycardia: Code(s): I47.2 - Ventricular tachycardia Status: Acute (16) Vitamin D deficiency, unspecified: Code(s): E55.9 - Vitamin D deficiency, unspecified Status: Acute DS: Summary Hospital Course Reason for hospitalization: this 73-year-old gentleman was admitted with multiple medical issues the primary reason being the ventricular tachycardia associated with the weakness history of the medical management of his underlying issues and laboratory analysis and PT OT and gait training and did remarkably well and was able to be sent home with the following independent measures Hospital Course: eating independent, oral hygiene independent, toileting independent, bathing independent, upper body dressing independent, lower body dressing independent, foot fairly independent, rolling in bed independent, sit to lying is independent, lying to sitting is independent, sit to stand independent, car transfers independent, toilet transfers independent, car transfers independent, walking 10 feet independent, walking 50 feet 2 with 2 turns independent, walking 150 feet independent, walking 10 feet uneven surfaces independent, [place] set up independent, 4 steps independent, 12 steps independent, P about object independent, which are 50 feet independent, which 150 feet independent. No falls were recorded Time Spent with Patient Time attestation: Total time spent providing and/or coordinating discharge services: Exam Const: General: comfortable and no acute distress HENMT: General nose exam: Normal nares present Mouth: Yes dry mucous membranes Eyes: General: appearance normal, both eyes and all related structures Neck: Neck: supple and no JVD Resp: Effort & Inspection: normal respiratory effort Auscultation: clear to auscultation bilaterally Cardio: Rate: regular rate Rhythm: regular rhythm GI: GI Palp: Yes Soft to pa
== END 2019-12-08 14:30 | disposition home or self-care (01) | DRG 949 ==
PROVIDERS: Admitting Provider Psychiatry & Neurology Neurology; PCP Family Medicine; Visit Provider Psychiatry & Neurology Neurology
DX: Z48.812 Encounter for surgical aftercare following surgery on the circulatory system (principal); I50.43 Acute on chronic combined systolic (congestive) and diastolic (congestive) heart failure; I47.2 Ventricular tachycardia; I13.0 Hypertensive heart and chronic kidney disease with heart failure and stage 1 through stage 4 chronic kidney disease, or unspecified chronic kidney disease; I31.3 Pericardial effusion (noninflammatory); D51.9 Vitamin B12 deficiency anemia, unspecified; E03.9 Hypothyroidism, unspecified; E78.5 Hyperlipidemia, unspecified; E55.9 Vitamin D deficiency, unspecified; E66.9 Obesity, unspecified; G47.33 Obstructive sleep apnea (adult) (pediatric); I08.1 Rheumatic disorders of both mitral and tricuspid valves; I95.9 Hypotension, unspecified; I25.10 Atherosclerotic heart disease of native coronary artery without angina pectoris; I25.2 Old myocardial infarction; N18.3 Chronic kidney disease, stage 3 (moderate); N40.0 Benign prostatic hyperplasia without lower urinary tract symptoms; Z95.810 Presence of automatic (implantable) cardiac defibrillator; Z68.32 Body mass index [BMI] 32.0-32.9, adult
CPT/HCPCS: 36415; 80048; 85025; 97110; 97116; 97161; 97165; 97530; 97535; 97542; A9270

== ENCOUNTER 2020-02-18 13:30 | Outpatient (RCR) | payer MEDICARE, SELFPAY ==
[2020-02-15 12:09] VITALS: PULSE 70
--- NOTE | 2020-02-22 10:55 | PCCPR ---
Carol-Rakan called in & states his MD just called him & told him his Potassium is dangerously low. 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 Hopes to return Saturday.
--- NOTE | 2020-02-25 14:43 | PCCPR ---
Absent without call Attempted to call Rakan at his home number message went to [employer]. Called his alternate number his son Massiel states his father has not been answering his phone. Asked if he did reach him if he could have him give us a call.
--- NOTE | 2020-02-25 15:41 | PCCPR ---
Rakan not here this week and did not return calls. Spoke with son regarding his absences. He was able to talk with his father and stated that his father did not want to return because he felt that it did not benefit him. Rakan's son said that Rakan has a doctor appointment in three weeks and asked us to place Rakan on hold until the appointment in hopes that the doctor will be able to convince Rakan to return.
--- NOTE | 2020-03-29 15:14 | PCCPR ---
called pt H#, he is currently inpt for 1 week and should be DC tomorrow 03/30. Pt son hopes the patient will return to [facility] from recent hospitalization. FU in 2 weeks if have not heard.
--- NOTE | 2020-04-13 15:09 | PCCPR ---
spoke to pt son, pt does not plan to return to rehab. will DC
== END 2020-04-13 15:10 | disposition home or self-care (01) ==
LOC: ANHCPREHAB 13:30
PROVIDERS: PCP Family Medicine
DX: I50.89 Other heart failure (principal)
CPT/HCPCS: 93798